=== PATIENT | female | born 1955 | race Caucasian/White ===

== ENCOUNTER 2021-09-20 11:06 | Outpatient (CLI) | payer BC, MEDICAID, SELFPAY ==
--- NOTE | 2021-09-20 11:18 | US_ITS ---
WS: [id number] RIGHT UPPER QUADRANT ULTRASOUND HISTORY: BLOATING/ RUQ PAIN/N/V INTERMITTENT COMPARISON: 10/06/2008 Liver: 14.5 cm in length. Liver is normal size. No mass. No bile duct dilatation. Portal Vein: Normal hepatopetal flow with monophasic waveform. Gallbladder: Well distended gallbladder. There is a nonmobile bowel 3 mm nodule which is probably a p olyp. The neck of the gallbladder is poorly visualized. A small stone or polyp at the neck or fold wi thin the lumen is not excluded. CBD: 0.2 cm Pancreas: Poorly visualized. Right kidney: 9.0 cm in length. Normal size and echogenicity. No hydronephrosis or mass. Aorta and IVC: Unremarkable abdominal aorta and IVC. No ascites. US/US abdomen limited [id number] IMPRESSION: 1. Technically limited evaluation of the RIGHT upper quadrant due to body habi tus. 2. Small gallbladder polyp similar to the prior study from 2008. Small stone o r additional polyp or gallbladder fold and not excluded at the neck. 3. Pancreas not well visualized.
== END 2021-09-20 11:07 | disposition home or self-care (01) ==
LOC: RAD 11:12
PROVIDERS: PCP Nurse Practitioner; Visit Provider Nurse Practitioner Family
DX: K82.4 Cholesterolosis of gallbladder (principal); R10.11 Right upper quadrant pain
CPT/HCPCS: 76705

== ENCOUNTER → 2021-10-25 16:01 | Outpatient (BNVA) | payer BC, MEDICAID, SELFPAY | PROVIDERS: PCP Nurse Practitioner; Referring Provider Nurse Practitioner Family; Visit Provider Surgery | DX: Z86.010 Personal history of colon polyps (principal) | CPT/HCPCS: 99202 ==

== ENCOUNTER 2022-01-03 12:31 | Emergency (ER) | payer BC, MEDICAID, SELFPAY ==
[2022-01-03 12:55] VITALS: BP 137/79; PULSE 87; RESP 16; TEMP 37.1; O2SAT 97; BMI 26.6
--- NOTE | 2022-01-03 13:17 | W.ED.ANIMALB ---
HPI - Animal Bite General: Chief Complaint: Animal Bite Stated Complaint: raccoon bite to pointer finger on left hand Time Seen by Provider: 01/03/22 13:00 History of Present Illness: Patient is a 66-year-old female comes to the ED after being bit by a raccoon. Bite occurred yesterday by a wild raccoon. The raccoon bit patient's second digit on righthand. Patient says yesterday she was walking her 3 dogs and they ran off and got away with her and attacked a raccoon. She went to pull the dogs off the raccoon and that is when the raccoon bit her finger. She then went home and cleaned bite with alcohol. Denies any other symptoms. Associated symptoms: Deny chills, fever(s) or headache(s) Review of Systems Const: Denies: fever(s), chills or fatigue Eyes: Denies: change in vision or eye discomfort ENMT: Denies: throat pain, odynophagia, nasal discharge or nasal congestion Card: Denies: chest pain, palpitations, edema, swelling of feet/ankles, dyspnea on exertion or orthopnea Resp: Denies: dyspnea, productive cough or non-productive cough GI: Denies: abdominal pain, nausea, vomiting, diarrhea, constipation or hematochezia : Denies: flank pain, dysuria or hematuria Musc: Denies: neck pain, back pain or extremity swelling Skin/Breast: Reports: new lesions (Raccoon bite on second digit of right hand); Denies: rash Neuro: Denies: headache(s), numbness in extremities or weakness in extremities [facility] ED PFSH: Medical History Hyperlipidemia No pertinent family history Family History Other Cancer Physical Exam Const: COMMON NORMALS: no acute distress, patient oriented x3 and alert GENERAL APPEARANCE: cooperative HENMT: COMMON NORMALS: normocephalic HEAD & SCALP: normocephalic MOUTH: Normal oral and palatal mucosa present THROAT: posterior oropharynx normal and uvula midline Neck/C-Spine: COMMON NORMALS: supple GENERAL: Yes normal visual inspection Resp: COMMON NORMALS: normal respiratory effort, No retractions, No use of accessory muscles and clear to auscultation bilaterally AUSCULTATION: clear to auscultation bilaterally Cardio: COMMON NORMALS: regular rate, regular rhythm, S1 normal heart sound present, S2 normal heart sound present, No gallops present (Cardio), No clicks present (Cardio), No murmurs present (Cardio) and Peripheral pulses 2+ throughout RATE: regular rate RHYTHM: regular rhythm HEART SOUNDS: S1 normal heart sound present and S2 normal heart sound present PERIPHERAL PULSES: Peripheral pulses 2+ throughout GI: COMMON NORMALS: Normal to inspection, nondistended, normoactive bowel sounds present, Soft to palpation, non-tender and no masses PALPATION: Yes Soft to palpation : COMMON NORMALS: Yes no CVA tenderness BLADDER/KIDNEY EXAM: Yes no CVA tenderness Back/Pelvis: COMMON NORMALS: no CVA tenderness Extremity: NARRATIVE EXTREMITY EXAM: Patient has small superficial bite james on distal end of second digit of right hand. No nailbed or nail damage noted. No signs of any cellulitis. Wound appears to be healing well. Neuro: COMMON NORMALS: patient oriented x3 and moves all extremities SENSORIUM/ORIENTATION: Yes alert Skin: GENERAL SKIN EXAM: dry skin Course Vital Signs: Vital signs: Vital Signs Temperature 98.7 F 01/03/22 12:55 Pulse Rate 87 01/03/22 12:55 Respiratory Rate 16 01/03/22 12:55 Blood Pressure 137/79 01/03/22 12:55 Pulse Oximetry 97 01/03/22 12:55 MDM - Animal Bite Medical Decision Making Patient is 66-year-old female comes to the ED after being bitten by wild raccoon. Her 3 dogs were fighting with a raccoon and when she went to pull the dogs away from the raccoon the raccoon bit her second digit of right hand. She went home and cleaned it with alcohol. She came here to the ED to get her tetanus and postexposure rabies vaccinations. Patient appears nontoxic in no acute distress or pain. She has a superficial bite wound to distal in the second digit that no signs of cellulitis noted. Her vitals are stable. Patient was given rabies IM and rabies Ig shots today. She was also given tetanus booster shot. She was diagnosed with raccoon bite and need for prophylactic vaccination against rabies. She was instructed on when to come back to receive the rest of her rabies vaccination series. She was discharged home on Augmentin as well. Patient stood agree with plan for Discharge Plan Discharge Patient Disposition: Home Clinical Impression: Bitten by raccoon, initial encounter, Rabies, need for prophylactic vaccination against Condition: Stable Prescriptions: New Augmentin 500-125 mg tablet 1 tab PO BID 7 Days Qty: 14 0RF No Action ketotifen fumarate [Alaway] 0.025 % (0.035 %) drops 1 drp ophthalmic (eye) BID 0RF Rx Instructions: administer at least 8 hours apart atorvastatin 40 mg tablet 40 mg PO DAILY 0RF bupropion HCl 150 mg tablet sustained-release 12 hr 150 mg PO DAILY 0RF mecobalamin (vitamin B12) 1,000 mcg tablet,disintegrating 1,000 mcg sublingual DAILY 0RF Rx Instructions: place tablet under tongue and allow to dissolve for at least30 secs before swallowing gabapentin 100 mg capsule 100 mg PO DAILY 0RF lorazepam 1 mg tablet 1 mg PO DAILY PRN0RF budesonide-formoterol [Symbicort] 160-4.5 mcg/actuation HFA aerosol inhaler 1 inh inhalation BID 0RF trazodone 50 mg tablet 25 mg PO DAILY 0RF venlafaxine 150 mg capsule,extended release 24hr 150 mg PO DAILY 0RF Discharge Orders: Discharge ED (Routine); Ordered 01/03/22 Ordered By: Tremaine Chavis Referrals: Alex Do CPNP [Primary Care Provider] - Discharge Diet: Regular Discharge Activity: Resume usual activity Patient Instructions: Rabies Vaccine (By injection), Rabies Immune Globulin (By injection), Animal Bite (ED), Rabies (ED) Activity Restrictions/Additional Instructions: Follow-up with medical provider as directed. return to the ED for rabies vaccination dose on day 3 (January 06), 7 (January 10) and 14 (January 17). take medications as prescribed. Return to the ER or your medical provider if condition worsens. Please read and understand discharge instructions. If any questions, please ask. 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
[2022-01-03] MEDS: rabies vaccine 2.5 unit SDV IM (14:33)
[2022-01-03] MEDS: tetanus-dipt-pertussis 0.5 mL SDV IM (14:36)
== END 2022-01-03 14:39 | disposition home or self-care (01) ==
PROVIDERS: Emergency Provider Physician Assistant; PCP Registered Nurse
DX: S61.250A Open bite of right index finger without damage to nail, initial encounter (principal); W55.51XA Bitten by raccoon, initial encounter; Z29.14 Encounter for prophylactic rabies immune globulin; Z20.3 Contact with and (suspected) exposure to rabies; E78.5 Hyperlipidemia, unspecified; Z23 Encounter for immunization
CPT/HCPCS: 90375; 90471; 90675; 90715; 99283

== ENCOUNTER 2022-02-03 14:22 | Outpatient (CLI) | payer BC, MEDICAID, SELFPAY ==
--- NOTE | 2022-02-03 14:32 | MM_ITS ---
WS: [id number] BILATERAL 3D TOMOSYNTHESIS DIGITAL SCREENING MAMMOGRAPHY WITH CAD CLINICAL INFORMATION: LT BREAST LUMP HISTORY: Screening mammogram. LEFT breast lumps COMPARISON: None. TECHNIQUE: Bilateral CC and MLO views. FINDINGS: Scattered fibroglandular densities bilaterally. Clustered punctate calcifications outer LEFT breast. Recommend spot magnification views in further evaluation. These are best seen on the cc view Palpable markers lower inner LEFT breast. No suspicious parenchymal abnormalities. Ultrasound is pend ing. RIGHT breast is unremarkable. ULTRASOUND BREAST LEFT TECHNIQUE: Ultrasound left breast focused area of concern. CLINICAL INFORMATION: LT BREAST LUMP COMPARISON: None. FINDINGS: Ultrasound LEFT breast in the area of patient concern 8-9:00 position. No suspicious underlying lesio ns. No cystic or solid nodules. No lesions to target for biopsy. MM/[place] [id number] IMPRESSION: BI-RADS: 0-Incomplete: Need additional imaging evaluation FOLLOW UP: Need Additional Imaging Recommend spot magnification views of the punctate clustered calcifications out er LEFT breast.
== END 2022-02-03 14:23 | disposition home or self-care (01) ==
PROVIDERS: PCP Registered Nurse; Visit Provider Nurse Practitioner Family
DX: N63.20 Unspecified lump in the left breast, unspecified quadrant (principal)
CPT/HCPCS: 76642; 77062

== ENCOUNTER 2022-05-05 13:36 | Outpatient (CLI) | payer MEDICARE, MEDICAID, SELFPAY ==
--- NOTE | 2022-05-05 13:56 | MM_ITS ---
WS: [id number] LEFT 3D TOMOSYNTHESIS DIGITAL MAMMOGRAPHY WITH CAD CLINICAL INFORMATION: LEFT BREAST LUMPS COMPARISON: February 03, 2022 TECHNIQUE: 3 views of the left breast were obtained with spot magnification views. FINDINGS: Scattered fibroglandular densities of the left breast. Previously described clustered punctate calcif ications upper outer LEFT breast. Calcifications are very faint with an amorphous appearance and are difficult to visualize. No suspicious calcifications. Recommend return to annual screening mammograph y. MM/[place] [id number] IMPRESSION: BI-RADS: 2-Benign FOLLOW UP: 1 Year Follow-up Recommend return to annual screening mammography.
== END 2022-05-05 13:37 | disposition home or self-care (01) ==
LOC: RAD 13:38
PROVIDERS: PCP Registered Nurse; Visit Provider Registered Nurse
DX: R92.8 Other abnormal and inconclusive findings on diagnostic imaging of breast (principal); N63.21 Unspecified lump in the left breast, upper outer quadrant
CPT/HCPCS: 77065

== ENCOUNTER 2023-09-07 11:36 | Outpatient (CLI) | payer MEDICARE, MEDICAID, SELFPAY ==
--- NOTE | 2023-09-07 11:51 | MM_ITS ---
WS: [id number] BILATERAL SCREENING DIGITAL TOMOSYNTHESIS MAMMOGRAM WITH CAD HISTORY: SCREENING COMPARISON: 05/05/2022, 02/03/2022 Bilateral CC and MLO views with tomosynthesis and synthetic mammography submitted. Computer aided det ection analyzed. Breast composition: There are scattered areas of fibroglandular density. No suspicious masses, microc alcifications or architectural distortion. The asymmetry in the upper outer quadrant of the LEFT te[address] st is stable with no progression. Benign calcifications. IMPRESSION: MM/[place] [id number] BI-RADS: 2-Benign FOLLOW UP: 1 Year Follow-up
== END 2023-09-07 11:37 | disposition home or self-care (01) ==
LOC: RAD 11:37
PROVIDERS: PCP Registered Nurse; Visit Provider Nurse Practitioner Family
DX: Z12.31 Encounter for screening mammogram for malignant neoplasm of breast (principal); R92.323 Mammographic fibroglandular density, bilateral breasts; N64.89 Other specified disorders of breast
CPT/HCPCS: 77063; 77067

== ENCOUNTER 2023-10-05 11:34 | Outpatient (CLI) | payer MEDICARE, MEDICAID, SELFPAY ==
--- NOTE | 2023-10-05 11:43 | MR_ITS ---
WS: [id number] MRI CERVICAL SPINE NONCONTRAST TECHNIQUE: Sagittal T1, T2 and STIR imaging. Axial T2, gradient, and fiesta imaging. CLINICAL INFORMATION: CERVICALGIA COMPARISON: FINDINGS: Straightening of the normal cervical lordosis. Cord signal is normal. Partially visualized syrinx in the upper thoracic cord. C2-C3: Normal. C3-C4: Mild facet arthropathy. Mild LEFT and no significant RIGHT foraminal narrowing. Spinal canal i s patent. C4-C5: Disc osteophyte complex with endplate ridging. Mild facet arthropathy. Spinal canal and forame n are patent. C5-C6: Disc osteophyte complex with endplate ridging. Mild facet arthropathy. Spinal canal and forame n are patent. C6-C7: Disc osteophyte complex with endplate ridging. Spinal canal and foramen are patent. Uncoverteb ral joint hypertrophy. C7-T1: Slight anterolisthesis C7 on T1. Mild RIGHT greater than LEFT bony foraminal narrowing. Shallow central protrusions T1-2 T2-3 and T3-4. Visualized brain stem structures: Normal. Prevertebral soft tissues: Normal. IMPRESSION: 1. Partially visualized syrinx in the upper thoracic cord. Recommend further evaluation with thoraci c and lumbar spine spine MRI without and with gadolinium enhancement. 2. Straightening of the normal cervical lordosis. 3. Slight anterolisthesis C7 on T1 with mild bilateral bony foraminal narrowing. 4. Shallow central protrusions T1-2 T2-3 and T3-4. 5. Mild to moderate facet arthropathy C4-C5 and C5-C6.
--- NOTE | 2023-10-05 11:43 | CTR_ITS ---
PROCEDURE INFORMATION: Exam: CT Chest Without Contrast; Diagnostic Exam date and time: 10/05/2023 11:54 AM Age: 68 years old Clinical indication: Other: Solitary pulmonary nodule, PT having mri too; Prior surgery; Surgery date: 6+ months; Surgery type: Gb TECHNIQUE: Imaging protocol: Diagnostic computed tomography of the chest without contrast. Sagittal and coronal reformatted images were created and reviewed. Radiation optimization: All CT scans at this facility use at least one of these dose optimization techniques: automated exposure control; mA and/or kV adjustment per patient size (includes targeted exams where dose is matched to clinical indication); or iterative reconstruction. COMPARISON: US abdomen limited [id number] 09/20/2021 11:34 AM RADIATION DOSE METRICS: Total DLP (mGy-cm): 395.56 FINDINGS: Limitations: Evaluation of the mediastinum and vascular structures is limited without intravenous contrast. Trachea: Tracheobronchial structures are patent. Lungs: Calcified granuloma in the posterior right upper lobe. No noncalcified pulmonary parenchymal nodules or masses. Lungs are clear bilaterally. Pleural spaces: No pneumothorax. No pleural effusion. Heart: No cardiomegaly. No pericardial effusion. Esophagus: The esophagus is unremarkable. Mediastinal space: No mediastinal hematoma. No pneumomediastinum. Lymph nodes: No lymphadenopathy. Partially calcified pretracheal lymph nodes. Vasculature: No evidence for aortic aneurysm. Pulmonary arteries are unremarkable. Pulmonary veins are unremarkable. Liver: The visualized liver is unremarkable. Gallbladder and bile ducts: The patient has had an interval cholecystectomy. No dilatation of the visualized bile ducts. Pancreas: The visualized pancreas is unremarkable. No pancreatic ductal dilatation. Spleen: The spleen is unremarkable. Adrenal glands: The right and left adrenal glands are unremarkable. Kidneys and ureters: The visualized right and left kidneys are unremarkable. Bones/joints: Degenerative changes in the spine and shoulders. Soft tissues: No acute abnormality in the extrathoracic soft tissues. CT/CT chest [place] con [id number] IMPRESSION: 1. No acute cardiopulmonary process. 2. Calcified granuloma in the posterior right upper lobe. 3. No noncalcified pulmonary parenchymal nodules or masses. 4. The patient has had an interval cholecystectomy. 5. Incidental/nonacute findings are listed in the report.
== END 2023-10-05 11:35 | disposition home or self-care (01) ==
LOC: RAD 11:35
PROVIDERS: PCP Nurse Practitioner Family; Visit Provider Nurse Practitioner Family
DX: R91.1 Solitary pulmonary nodule (principal); M54.2 Cervicalgia; M47.812 Spondylosis without myelopathy or radiculopathy, cervical region
CPT/HCPCS: 71250; 72141

== ENCOUNTER → 2023-10-31 15:33 | Outpatient (BNVA) | payer MEDICARE, MEDICAID, SELFPAY | PROVIDERS: PCP Nurse Practitioner Family; Visit Provider Orthopaedic Surgery | DX: M47.22 Other spondylosis with radiculopathy, cervical region (principal); M54.2 Cervicalgia | CPT/HCPCS: 72050; 99204 ==

== ENCOUNTER 2023-11-07 12:29 | Outpatient (CLI) | payer MEDICARE, MEDICAID, SELFPAY ==
--- NOTE | 2023-11-07 12:40 | XR_ITS ---
WS: [id number] DEXA (DUAL ENERGY X-RAY ABSORPTIOMETRY) Bone mineral density was performed using a [employer] machine. HISTORY: MENOPAUSAL COMPARISON: None available. Lumbar spine BMD (L1-L4): 1.038 g/cm2 T score: -1.2 Z score: -0.1 Total hip BMD: Left: 0.882 g/cm2. T score: -1.0 Z score: -0.1 Right: 0.888 g/cm2. T score: -1.0 Z score: -0.1 10 year probability of a major osteoporotic fracture is 34.4%. IMPRESSION: OSTEOPENIA based upon the WHO classification for females.
== END 2023-11-07 12:30 | disposition home or self-care (01) ==
LOC: RAD 12:29
PROVIDERS: PCP Nurse Practitioner Family; Visit Provider Nurse Practitioner Family
DX: Z13.820 Encounter for screening for osteoporosis (principal); N95.1 Menopausal and female climacteric states; M85.80 Other specified disorders of bone density and structure, unspecified site
CPT/HCPCS: 77080

== ENCOUNTER → 2024-12-18 14:18 | Outpatient (BNVA) | payer MEDICARE, MEDICAID, SELFPAY | PROVIDERS: PCP Nurse Practitioner Family; Visit Provider Podiatrist Foot & Ankle Surgery | DX: M79.671 Pain in right foot (principal); M79.672 Pain in left foot; M21.611 Bunion of right foot; M21.612 Bunion of left foot | CPT/HCPCS: 73630; 99204 ==

== ENCOUNTER 2025-01-01 00:03 | Emergency (ER) | payer OTHER, MEDICAID, SELFPAY ==
[2025-01-01 00:23] VITALS: BP 153/79; PULSE 85; RESP 16; TEMP 36.4; O2SAT 96; BMI 29.1
[2025-01-01 00:30] VITALS: BP 153/79; PULSE 85; O2SAT 96
--- NOTE | 2025-01-01 01:12 | ED_ITS ---
HPI - Wound/Laceration 2 General: Chief Complaint: Wound/Laceration Stated Complaint: Cut Lip Time Seen by Provider: 01/01/25 00:37 Source: patient Mode of arrival: ambulatory Limitations: no limitations History of Present Illness: 69yo female presents with laceration to the chin that occurred when she hit the corner of her nightstand this evening. Patient states her cat was getting into stuff and she hit the nightstand as she was trying to get the cat. She is able to open her jaw with no difficulty. She denies any other injury or concern at this time. Associated symptoms: Denies chills, fever(s) or vomiting Related Data Home Medications ?Medication ?Instructions ?Recorded ?Confirmed atorvastatin 40 mg tablet 40 mg PO DAILY 10/25/2111/08 budesonide-formoterol HFA 160 1 inh inhalation BID 06/0712/18/24 mcg-4.5 mcg/actuation aerosol inhaler (Symbicort) bupropion HCl 150 mg tablet,12 hr 150 mg PO DAILY 10/1512/18/24 sustained-release gabapentin 100 mg capsule 100 mg PO DAILY 10/25/2111/08 ketotifen fumarate 0.025 % (0.035 1 drp ophthalmic (ey e) BID 10/25/21 12/18/24 %) eye drops (Alaway) lorazepam 1 mg tablet 1 mg PO DAILY PRN 10/25/21 0 12/18/24 mecobalamin (vitamin B12) 1,000 1,000 mcg sublingual D AILY 10/25/21 12/18/24 mcg disintegrating tablet,sublingual venlafaxine 150 mg 150 mg PO DAILY 10/25/2111/08 capsule,extended release 24 hr Allergies Allergy/AdvReac Type Severity Reaction Status Date / Time doxycycline Allergy Intermediate depression Verified 01/01/25 00:30 Review of Systems 2 Const: Denies: fever(s), chills or body aches Eyes: Denies: change in vision or blurry vision ENMT: Denies: mouth pain GI: Denies: vomiting Musc: Denies: neck pain or back pain Skin/Breast: Reports: other (Laceration chin) Neuro: Denies: headache(s) Farshad/Lymph: Denies: easy bruising PFSH ED 2 PFSH: Medical History Hyperlipidemia No pertinent family history Family History Other Cancer Social History Smoking and tobacco/nicotine status: never used tobacco/nicotine Physical Exam 2 Const: COMMON NORMALS: no acute distress, patient oriented x3, healthy appearing and alert GENERAL APPEARANCE: cooperative O RIENTATION/CONSCIOUSNESS: Yes awake OTHER: Patient is ambulatory to [facility] recliner with no difficulty. She is interactive with exam appropriately. She is able to provide history with no difficulty. Family is at bedside at time of exam HENMT: COMMON NORMALS: normocephalic and Normal external nose present HEAD & SCALP: normocephalic FACE & SINUS: laceration (chin, 5.5cm) FACE & SINUS IMAGES: 1. does not cross [place] border. Bleeding controlled at this time NOSE: Normal external nose present MOUTH: lip normal; no mouth trauma, no trismus and no restricted motion TEETH & GINGIVA: no abnormal tooth and associated gingiva Neck/C-Spine: COMMON NORMALS: full ROM CERVICAL SPINE: No Cervical spine tenderness and No step off deformity Chest: CHEST: Yes Symmetrical chest wall rise Resp: COMMON NORMALS: normal respiratory effort EFFORT & INSPECTION: Yes able to speak in complete sentences Extremity: COMMON NORMALS: full ROM Neuro: COMMON NORMALS: patient oriented x3 SENSORIUM/ORIENTATION: Yes alert Psych: COMMON NORMALS: cooperative Skin: TRAUMA: laceration (chin) Y-shaped Procedures Laceration Laceration 1: Site: face (chin) Side (If applicable): left Size (cm): 5.5 Description: linear Depth: simple, single layer Local Anesthetic: lidocaine 1% and with epi Amount of anesthesia used (mL): 5 Pre-repair: wound explored and irrigated extensively Skin layer closed with: nylon Size (cm): 5-0 Number of sutures: 10 Technique: simple, interrupted Course 2 Vital Signs: Vital signs: Vital Signs Temperature 97.6 F 01/01/25 00:23 Pulse Rate 97 01/01/25 01:42 Respiratory Rate 16 01/01/25 00:23 Blood Pressure 153/78 01/01/25 01:42 Pulse Oximetry 99 01/01/25 01:42 Oxygen Delivery Me thod Room Air 01/01/25 00:23 MDM - Wound/Laceration Medical Decision Making 69yo female presents with laceration to the chin that occurred when she hit the corner of her nightstand this evening. Patient states her cat was getting into stuff and she hit the nightstand as she was trying to get the cat. She is able to open her jaw with no difficulty. She denies any other injury or concern at this time. Patient is nontoxic in appearance. Vital signs are stable. Patient does have full range of motion of her jaw and neck. No dental abnormalities. Laceration did not cross [place] border. Laceration was copiously irrigated and repaired with sutures, patient tolerated well. Discussed wound care. Recommend she follow-up with primary care/urgent care in 5 days for suture removal, sooner if needed. Return precautions provided. Patient states understanding and has no further questions or concerns at this time. Differential Diagnosis Likely laceration Medical Records I reviewed the patient's medical records. No radiology studies performed this visit Discharge Plan Discharge Patient Disposition: Home Clinical Impression: Facial laceration Qualifiers: Encounter type: initial encounter Qualified Code(s): S01.81XA - Laceration without foreign body of other part of head, initial encounter Condition: Stable Prescriptions: No Action ketotifen fumarate [Alaway] 0.025 % (0.035 %) drops 1 drp ophthalmic (eye) BID Rx Instructions: administer at least 8 hours apart atorvastatin 40 mg tablet 40 mg PO DAILY bupropion HCl 150 mg tablet sustained-release 12 hr 150 mg PO DAILY mecobalamin (vitamin B12) 1,000 mcg tablet,disintegrating 1,000 mcg sublingual DAILY Rx Instructions: place tablet under tongue and allow to dissolve for at least30 secs before swallowing gabapentin 100 mg capsule 100 mg PO DAILY lorazepam 1 mg tablet 1 mg PO DAILY PRN budesonide-formoterol [Symbicort] 160-4.5 mcg/actuation HFA aerosol inhaler 1 inh inhalation BID venlafaxine 150 mg capsule,extended release 24hr 150 mg PO DAILY Discharge Orders: Discharge ED (Routine); Ordered 01/01/25 Ordered By: Duong Barron Referrals: Lillian Du NP [Primary Care Provider, Nurse Practitioner] Discharge Diet: Usual diet Discharge Activity: Resume usual activity Patient Instructions: Laceration (ED), Pain Management Activity Restrictions/Additional Instructions: Avoid submersion under any water until the wound has healed Gently wash with soap and water. Clean water may run over the wound. 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
[2025-01-01 01:42] VITALS: BP 153/78; PULSE 97; O2SAT 99
== END 2025-01-01 01:44 | disposition home or self-care (01) ==
PROVIDERS: Emergency Provider Nurse Practitioner; PCP Nurse Practitioner Family
DX: S01.81XA Laceration without foreign body of other part of head, initial encounter (principal); W22.8XXA Striking against or struck by other objects, initial encounter; E78.5 Hyperlipidemia, unspecified
CPT/HCPCS: 12014; 99282; J9999